=== PATIENT | male | born 1960 | race Hispanic/Latino ===

== ENCOUNTER 2020-12-22 08:16 | Emergency (ER) | payer SELFPAY ==
[2020-12-22] MEDS ORDERED: Boostrix 0.5 ML (Tdap) VIAL ONE (08:39)
[2020-12-22] MEDS ORDERED: Acetaminophen 500 MG TAB ONE (08:39)
[2020-12-22] MEDS ORDERED: Lidocaine 1% w/Epinephrine 1:100K 20 ML VIAL ONE (10:34)
== END 2020-12-22 11:43 | disposition home or self-care (01) ==
LOC: ERS 08:16
DX: S06.9X9A Unspecified intracranial injury with loss of consciousness of unspecified duration, initial encounter (principal); S01.21XA Laceration without foreign body of nose, initial encounter; S01.01XA Laceration without foreign body of scalp, initial encounter; W22.8XXA Striking against or struck by other objects, initial encounter
CPT/HCPCS: 12001; 12011; 70450; 70486; 72125; 90471; 90715